=== PATIENT | male | born 1960 | race Caucasian/White ===

== ENCOUNTER → 2016-09-23 | Outpatient (CLI) | payer OTHER, MEDICAID | LOC: FIMAGING 13:53 | PROVIDERS: ATTEND Family Medicine | DX: M81.0 Age-related osteoporosis without current pathological fracture (principal); G35 Multiple sclerosis; E55.9 Vitamin D deficiency, unspecified; Z79.899 Other long term (current) drug therapy ==

== ENCOUNTER → 2017-04-28 | Outpatient (CLI) | payer OTHER, MEDICAID | LOC: FIMAGING 07:11 | PROVIDERS: ATTEND Physician Assistant Medical | DX: K82.9 Disease of gallbladder, unspecified (principal) ==

== ENCOUNTER 2017-07-18 07:31 | Inpatient (IN) | payer OTHER, MEDICAID ==
[2017-07-18] MEDS ORDERED: LIDOCAINE 2% JELLY 20 ML (UROJECT) UR ONE (07:51)
--- NOTE | 2017-07-18 08:12 | EDPHY ---
H & P Time Seen by Provider: 07/18/17 07:54 HPI/ROS: CHIEF COMPLAINT: Can't urinate HISTORY OF PRESENT ILLNESS: History of multiple sclerosis, had a urinary catheter since April, voiding trial since yesterday, presents with inability to void today. Catheter was placed and has very cloudy urine which is a change for him. Usually it is clear. Today not associated with nausea vomiting fever or any other systemic symptoms. REVIEW OF SYSTEMS: Eye: no change in vision ENT: no sore throat Cardiac: no chest pain or syncope Pulmonary: no cough or SOB Abdomen: no vomiting, diarrhea, abdominal pain Musculoskeletal: no back pain Skin: no rash Neuro: no headache, no weakness. Constitutional: no fever : HPI A comprehensive 10 point review of systems is otherwise negative aside from elements mentioned in the history of present illness. PAST MEDICAL HISTORY: Multiple sclerosis Social history: Nonsmoker General Appearance: Alert and conversant, cooperative. Eyes: No scleral icterus. ENT, Mouth: Normal mucous membranes. Respiratory: Normal respiratory effort, breath sounds equal, lungs are clear to auscultation. Cardiovascular: Regular rate and rhythm. Gastrointestinal: Abdomen is soft and non tender. Normal male . Neurological: Alert, has weakness in his legs which is typical for him, can move his toes but can't really move either leg very well. Skin: Warm and dry, no rashes. Musculoskeletal: No peripheral edema. Psychiatric: Not agitated. Emergency Department course/MDM: Significant change in character of urine, observation admission for IV antibiotics in a patient with new urinary tract infection and indwelling catheter. Ceftriaxone 1 g IV. Does not have SIRS criteria. Smoking Status: Never smoked Constitutional: Initial Vital Signs Temperature (C) 36.8 C 07/18/17 07:46 Heart Rate 98 07/18/17 07:46 Respiratory Rate 16 07/18/17 07:46 Blood Pressure 139/99 H 07/18/17 07:46 O2 Sat (%) 98 07/18/17 07:46 O2 Delivery Mode Room Air Allergies/Adverse Reactions: No Known Allergies Allergy (Unverified 07/18/17 07:45) Home Medications: Medication Instructions Recorded Herbals/Supplements -Info Only 1 ea PO DAILY 07/18/17 Mirabegron [Myrbetriq] 25 mg PO HS 07/18/17 Medical Decision Making Differential Diagnosis: Differential for urinary retention considered including but not limited to prostatic hypertrophy, UTI, neurologic problem, hematuria. Consult/Admit Bed Type: [place] [id number] - Data Points Laboratory Results: Laboratory Results 07/18/17 08:36 07/18/17 08:36 07/18/17 07/18/1718 08:36 08:36 08:09 WBC 6.91 10^3/uL 10^3/uL (3.80-9.50) RBC 5.59 10^6/uL 10^6/uL (4.40-6.38) Hgb 14.9 g/dL g/dL (13.7-17.5) Hct 45.5 % % (40.0-51.0) MCV 81.4 fL L fL (81.5-99.8) MCH 26.7 pg L pg (27.9-34.1) MCHC 32.7 g/dL g/dL (32.4-36.7) RDW 12.8 % % (11.5-15.2) Plt Count 222 10^3/uL 10^3/uL (150-400) MPV 10.5 fL fL (8.7-11.7) Neut % (Auto) 77.9 % H % (39.3-74.2) Lymph % (Auto) 13.3 % L % (15.0-45.0) [place] % (Auto) 7.4 % % (4.5-13.0) Eos % (Auto) 0.7 % % (0.6-7.6) Baso % (Auto) 0.3 % % (0.3-1.7) Nucleat RBC Rel Count 0.0 % % (0.0-0.2) Absolute Neuts (auto) 5.38 10^3/uL 10^3/uL (1.70-6.50) Absolute Lymphs (auto) 0.92 10^3/uL L 10^3/uL (1.00-3.00) Absolute Monos (auto) 0.51 10^3/uL 10^3/uL (0.30-0.80) Absolute Eos (auto) 0.05 10^3/uL 10^3/uL (0.03-0.40) Absolute Basos (auto) 0.02 10^3/uL 10^3/uL (0.02-0.10) Absolute Nucleated RBC 0.00 10^3/uL 10^3/uL (0-0.01) Immature Gran % 0.4 % % (0.0-1.1) Immature Gran # 0.03 10^3/uL 10^3/uL (0.00-0.10) Sodium 149 mEq/L H mEq/L (135-145) Potassium 4.6 mEq/L mEq/L (3.5-5.2) Chloride 111 mEq/L H mEq/L (97-110) Carbon Dioxide 24 mEq/l mEq/l (22-31) Anion Gap 14 mEq/L mEq/L (8-16) BUN 27 mg/dL H mg/dL (7-23) Creatinine 1.5 mg/dL H mg/dL (0.7-1.3) Estimated GFR 48 Glucose 94 mg/dL mg/dL (70-100) Calcium 9.4 mg/dL mg/dL (8.5-10.4) Urine Color YELLOW Urine Appearance MODERATELY TURBID Urine pH 6.0 (5.0-7.5) Ur Specific [place] 1.011 (1.002-1.030) Urine Protein 1+ H (NEGATIVE) Urine Ketones NEGATIVE (NEGATIVE) Urine Blood 2+ H (NEGATIVE) Urine Nitrate NEGATIVE (NEGATIVE) Urine Bilirubin NEGATIVE (NEGATIVE) Urine Urobilinogen NEGATIVE EU EU (0.2-1.0) Ur Leukocyte Esterase 3+ H (NEGATIVE) Urine RBC 50-182 /hpf H /hpf (0-3) Urine WBC 50-182 /hpf H /hpf (0-3) Ur Epithelial Cells NONE SEEN /lpf /lpf (NONE-1+) Urine Bacteria 2+ /hpf H /hpf (NONE SEEN) Urine Glucose NEGATIVE (NEGATIVE) Medications Given: Enoxaparin Sodium (Lovenox) 40 mg SC DAILY ERNESTO Stop: 01/14/18 08:59 Last Admin: 07/18/17 10:43 Dose: 40 mg Discontinued Medications Ceftriaxone Sodium/Dextrose (Rocephin 1 Gm (Premix)) 50 mls @ 100 mls/hr IV EDNOW ONE PRN Reason: Protocol Stop: 07/18/17 09:09 Last Admin: 07/18/17 09:06 Dose: 50 mls Sodium Chloride (Ns) 1,000 mls @ 0 mls/hr IV EDNOW ONE; Wide Open PRN Reason: Protocol Stop: 07/18/17 08:41 Last Admin: 07/18/17 09:05 Dose: 1,000 mls Sodium Chloride (Ns) 1,000 mls @ 3,000 mls/hr IV ONCE ONE Stop: 07/18/17 09:11 Last Admin: 07/18/17 10:11 Dose: 1,000 mls Lidocaine (Uroject Lidocaine 2% Jelly) 20 ml UR ONCE ONE Stop: 07/18/17 07:52 Last Admin: 07/18/17 08:01 Dose: 20 ml Departure - Departure Disposition: [facility] Inpatient Acute Clinical Impression: Acute retention of urine Urinary tract infection Qualifiers: Urinary tract infection type: catheter-associated UTI Indwelling urinary catheter type: indwelling urethral catheter Encounter type: initial encounter Qualified Code(s): T83.511A - Infection and inflammatory reaction due to indwelling urethral catheter, initial encounter; N39.0 - Urinary tract infection , site not specified; N39.0 - Urinary tract infection, site not specified Condition: Good
[2017-07-18] MEDS ORDERED: NS 1,000 ML IV ONE ×2 (08:40→08:52)
[2017-07-18 08:44] LABS: PLATELET COUNT 222 10^3/uL (150-400)
[2017-07-18] MEDS ORDERED: ACETAMINOPHEN 325 MG TAB PO PRN (08:52)
[2017-07-18] MEDS ORDERED: ONDANSETRON DISINTEGRATING 4 MG TAB PO PRN (08:52)
[2017-07-18] MEDS ORDERED: ONDANSETRON 4 MG/2 ML VIAL IVP PRN (08:52)
[2017-07-18] MEDS: ENOXAPARIN 40 MG/0.4 ML SYR SC SCH (10:43)
--- NOTE | 2017-07-18 12:51 | GHP ---
[f rep st] HISTORY AND PHYSICAL DATE OF ADMISSION: 07/18/2017 CHIEF COMPLAINT: Not urinating. HISTORY OF PRESENT ILLNESS: A 57-year-old male with a history of MS and BPH, who has been seen in [facility] outpatient setting by Urology for obstructive uropathy. The patient had a Vera catheter placed fo r approximately 1 month, then had it discontinued, and has been seen in Urology with recommendations for intermittent straight catheterizing. Patient returned home, was out of straight catheterizing bach pplies, was having difficulty passing urine. Therefore, presented to the emergency department for ev aluation. In the ED, he endorses pressure of the lower abdomen. Denies any fevers or chills. Denie s dysuria, denies hematuria. Denies any chest pain, shortness of breath, nausea, vomiting, changes i n his bowel habits, lower extremity edema, or new rashes. PAST MEDICAL HISTORY: 1. MS diagnosed in 1992, wheelchair-bound. 2. BPH. SOCIAL HISTORY: Negative for tobacco, alcohol. Patient does smoke medical marijuana. FAMILY HISTORY: Negative for MS. REVIEW OF SYSTEMS: A 10-point review of systems was negative, with the exception of that reported in the HPI. PHYSICAL EXAMINATION: VITAL SIGNS: Blood pressure 131/78, heart rate 80, respiratory rate 14, satur ating 99% on room air, temperature 36.8. GENERAL: This is a middle-aged male in no acute distress, sitting up in bed. HEENT: Notable for dry mucous membranes. Eye exam is negative for any icterus. CARDIAC: Patient is regular rate and rhythm. PULMONARY: Clear to auscultation bilaterally. GASTR OINTESTINAL: Positive bowel sounds. Abdomen is soft and nontender. MUSCULOSKELETAL: Negative for any lower extremity edema. SKIN: Negative for any rashes. NEUROLOGIC: Patient is alert and orient ed x3. PSYCHIATRIC: He is pleasant and cooperative on interview and examination. DATA: White count 6.9, hematocrit 45.5, platelet count of 222. Sodium of 149, creatinine 1.5. Urin alysis: 50-182 white blood cells. Ultrasound of the abdomen, which I reviewed, shows normal sonographic appearance of the kidneys in [facility] 2018. ASSESSMENT AND PLAN: This is a 57-year-old male presenting with urinary retention. 1. Acute urinary tract infection, suspect secondary to urinary retention, related to his multiple sc lerosis and prostatic hypertrophy. The patient had a Vera catheter placed in the emergency departme nt. Will initiate IV ceftriaxone, send urine for culture, and continue ceftriaxone until cultures ar e available with speciation and sensitivities. 2. Chronic urinary retention. Will discontinue the Vera catheter and follow the outpatient urologi c plan for straight catheterizing. Will bladder scan the patient and straight catheterize q.6 hours for retention greater than 300 cc. Will additionally provide education and opportunity for the patie nt to practice his straight catheterizing skill, which he has not used consistently at home. 3. Multiple sclerosis. Will continue his outpatient medications. 4. Prophylaxis with Lovenox. 5. Diet regular. 6. Disposition: I suspect greater than 2 midnights, as the patient has medical comorbidities, urina ry retention, and infection requiring IV antibiotics. I have discussed the case with the emergency room physician. Patient will be triaged to the Medical- Surgical floor for care. /[id number]/MODL
--- NOTE | 2017-07-18 13:56 | PDMN ---
Medical Necessity Medical necessity: C/M review: est. > 2 MN LOS for eval and TX of acute urinary tract infection, suspect secondary to urinary retention, related to multiple sclerosis and prostatic hypertrophy, requiring IV fluids in ED, Evra catheter placement in ED, discontinue Vera catheter, Wound Care consult, Dietary consult, Case Management consult, ongoing IV Ceftriaxone, follow outpatient urologic plan for straight catheterizing - bladder scan patient and straight catheterize Q 6 hrs. for retention > 300 ml, provide patient education on self catheterization, acute inpt PT/OT, comorbid history of multiple sclerosis diagnosed in 1992, patient is wheelchair bound, benign prostatic hypertrophy, chronic urinary retention, history of Vera catheter placement for one month, then had it discontinued, and was seen in Urology with recommendations fro intermittent straight catheterizing, patient returned home, was out of straight catheterizing supplies, was having difficulty with passing urine then presented to the ED just prior to this admission per H/P.
[2017-07-18] MEDS ORDERED: Mirabegron [Myrbetriq] 25 MG PO SCH (21:00)
[2017-07-19 05:20] LABS: PLATELET COUNT 214 10^3/uL (150-400)
[2017-07-19 07:39] VITALS: BP 122/64
[2017-07-19] MEDS: ENOXAPARIN 40 MG/0.4 ML SYR SC SCH (08:39)
[2017-07-19] MEDS ORDERED: Herbals/Supplements -Info Only PO SCH (09:00)
--- NOTE | 2017-07-19 09:43 | WOCRNPDOC ---
WOCRN Advanced Assessment Note - Skin Integrity Problem, Advanced Assess Left Buttock Pressure Injury Dressing Type: Mepilex Border Dressing Description: Intact Exudate Amount: None Exudate Characteristic(s): None Integumentary Issue Intervention: Dressing Applied, Dressing Initialed & Dated Maxine Wound Tissue: Intact Maxine Wound Swelling: None Wound Bed Color: Red Site Measurement - Head-to-Toe Length X Width X Depth (cm): [id number] Pressure Injury Stage: Stage 1 Pressure Injury Present on Admit: Yes (documented by nursing; hospitalist notified) Skin Integrity Problem Comment: Dime-sized area of non-blanching erythema noted on patient's L buttock, skin intact. While not over a bony prominence, concerning because patient reports sitting up in WC for "about 5 hours" each day. Nursing initiated Mepilex sacrum and off-loading cusion, and these interventions are appropriate to continue. Order put in for repositioning in chair q1 hour as well. Discussed with patient the importance of frequent repositioning, and he verbalized understanding. Wound care will follow up on Monday 07/24 if he remains inpatient. Coccyx Dressing Type: Mepilex Border Dressing Description: Intact Exudate Amount: None Exudate Characteristic(s): None Integumentary Issue Intervention: Dressing Applied, Dressing Initialed & Dated Maxine Wound Tissue: Blanching, Intact Maxine Wound Swelling: None Skin Integrity Problem Comment: Small slit noted over patient's coccyx, w/ no swelling or erythema. Skin blanches throughout. Appearance consistent w/ ITD, however patient is not incontinent of urine or stool and has no other signs of skin breakdown. Could simply be anatomical defect. Nursing is already monitoring an area of redness on his L buttock, and Mepilex sacral dressing should cover this area as well.
[2017-07-19] MEDS ORDERED: SENNOSIDES/DOCUSATE SODIUM TAB PO SCH (10:30)
--- NOTE | 2017-07-19 14:27 | ASDISCHSUM ---
Discharge Information Plan Status:Home with No Needs Medically Cleared to Leave:07/19/2017 Discharge Date:07/19/2017 02:23 PM CM D/C Disposition:Home, Routine, Self-Care ADT D/C Disposition:Home, Routine, Self-Care Projected Discharge Date:07/19/2017 02:23 PM Transportation at D/C:Friend Discharge Delay Reason: Follow-Up Date:07/19/2017 02:23 PM Discharge Slot: Final Diagnosis: Placement Information Patient Contact Information Contact Name:BRENNEN Relationship:Friend Address: Work Phone: City: [facility] Phone: State/[employer] Code: Email: Financial Information Financial Class:Medicare Primary Plan Desc:MEDICARE INPATIENT Primary Plan Number:[id number] Secondary Plan Desc:MEDICAID [place] Secondary Plan Number:[id number] Assessment Information Case Management Discharge Plan Note Case Management Discharge Discharge Order Complete? Answers: Yes Patient to Obtain Answers: Independently Medications Transportation Arranged Answers: Family/Friends Discharge Comments Notes: Pt admitted with UTI and urinary retention. Hx of MS and BPH. He was seen by wound care for a L buttock pressure wound. He is wheelchair bound. Pt is being discharged home today with no CM needs. He was provided with some straight cath supplies and will f/u with urology Thursday. Date Signed: 07/19/2017 02:25 PM Electronically Signed By:JOSIANE Sparks Intervention Information
--- NOTE | 2017-07-19 14:50 | GDS ---
[f rep st] DISCHARGE SUMMARY DISCHARGE DIAGNOSES: Include: 1. Acute urinary tract infection secondary to gram-negative rogers. 2. Urinary retention, chronic. 3. Multiple sclerosis, wheelchair bound. 4. Benign prostatic hypertrophy. HISTORY OF PRESENT ILLNESS: A 57-year-old male, with history of multiple sclerosis and BPH, who pres ents with urinary retention and UTI. For details of the patient's initial presentation, please see t he history and physical dated 07/18/2017. CONSULTATIVE SERVICES: None. PROCEDURES: None. HOSPITAL COURSE BY ISSUE: 1. Acute urinary tract infection. Patient presented with complaints of abdominal discomfort, urinar y retention. Urinalysis was consistent with infection. Patient was initiated on empiric IV ceftriax one. Urine culture did isolate a gram-negative lactose-fermenting rogers. Patient is feeling markedly better the morning after presentation, in fact, has recovered more quickly than we anticipated. I be lieve it is safe to transition him to oral levofloxacin to complete a full 7-day course. He will see Urology in the outpatient setting. 2. Chronic urinary retention. Patient has a history of obstructive uropathy with a creatinine of 3 checked earlier this year. His creatinine is 1.5 to 1.6 during this hospital stay. We did do educat ion on self-cathing and are providing the patient with some materials to self-cath until he is seen a gain in the outpatient Neurology Clinic on 07/21/2017. 3. Multiple sclerosis. Patient was seen by PT, OT, as well as Wound Care, during this hospital stay , provided extensive education on shifting weight, skin protection, etc. 4. Left buttock pressure injury, present on admission. Patient was seen by Wound, with extensive ed ucation on how to avoid ongoing skin breakdown. MEDICATIONS AT THE TIME OF DISPOSITION: Please reference the med rec printed 07/19/2017. FOLLOWUP APPOINTMENTS: Include with outpatient Urology on 07/21/2017, as well as with his primary ca re provider in the next 2-3 weeks for general post disposition followup. PENDING STUDIES: At the time of this dictation include urine cultures which have isolated a gram-neg ative lactose-fermenting rogers. Will follow these in the next 24-48 hours to verify that the isolated organism is sensitive to levofloxacin. I spent greater than 30 minutes in the planning and coordinat ion of this discharge. /[id number]/MODL
== END 2017-07-19 14:23 | disposition home or self-care (01) | DRG 690 ==
LOC: F3E 09:42
PROVIDERS: ADMIT Internal Medicine; ATTEND Internal Medicine
DX: N39.0 Urinary tract infection, site not specified (principal); R33.9 Retention of urine, unspecified; G35 Multiple sclerosis; N40.1 Benign prostatic hyperplasia with lower urinary tract symptoms; L89.321 Pressure ulcer of left buttock, stage 1; Z99.3 Dependence on wheelchair
CPT/HCPCS: 97161-GP; 97165-GO; G8978-GP-CI; G8979-GP-CI; G8980-GP-CI; G8987-GO-CJ; G8988-GO-CJ; G8989-GO-CJ; J0696; J1650

== ENCOUNTER 2017-08-27 07:38 | Day surgery (SDC) | payer OTHER, MEDICAID ==
--- NOTE | 2017-08-19 08:33 | CPEKG ---
Heart Rate: 60 RR Interval: 1000 P-R Interval: 120 QRSD Interval: 96 QT Interval: 404 QTC Interval: 404 P [place]: 76 QRS [place]: 80 T Wave [place]: 64 EKG Severity - ABNORMAL ECG - EKG Impression: SINUS RHYTHM EKG Impression: LATERAL INFARCT, OLD Electronically Signed By: Indra Ramos 20-Aug-2017 08:30:15
--- NOTE | 2017-08-26 16:45 | GHP ---
[f rep st] PREOP HISTORY AND PHYSICAL ADMISSION DIAGNOSIS: Neurogenic bladder. Dr. Urena has referred this patient because of urinary symptoms. He has nocturia hourly, urine ,leaka ge symptoms been ongoing for the last year and he also complains of urgency. He has had a catheter i n the past and he has attempted to do intermittent self catheterization without success. He denies h istory of urinary tract infections. He does have multiple sclerosis. He has tried and failed VESIca re in the past. He has also been on Myrbetriq which he stopped recently. He had no obvious improvem ent with Rapaflo. His past medical history is noted for the multiple sclerosis. His AUA score revea led that he had a quality of life of 6, which is terrible and a total score of 33. He had a PSA of 1 in September of 2016. Creatinine has been slowly elevating over the past because of unknown cause. PAST MEDICAL HISTORY: He has had urinary retention and multiple sclerosis. PAST SURGERIES: Ankle surgery. MEDICATIONS: No current medications. ALLERGIES: None. FAMILY HISTORY: He says is positive for sickle cell trait or disease. SOCIAL HISTORY: Nondrinker, unemployed. Uses medical marijuana. IMMUNIZATIONS: Up to date. REVIEW OF SYSTEMS: Negative cardiac, respiratory, GI and endocrine. He does have the multiple scler osis. PHYSICAL EXAM: GENERAL: He is wheelchair bound. HEENT: He has no scleral icterus. LUNGS: Unlabo red breathing. HEART: Regular rate and rhythm. ABDOMEN: Soft. EXTREMITIES: Lower extremities ar e normal. At the present time, he is admitted for cystoscopy for evaluation of his lower urinary tract under an esthesia because he does not feel he can tolerate this awake. He is aware that the anesthesia may wang ve some effect or flare with respect to his multiple sclerosis. /[id number]/MODL
--- NOTE | 2017-08-27 07:00 | PDHPUP ---
History & Physical Update H&P update statement: This history and physical update is based on an assessment of the patient which was completed after admission or registration (within 24 hours), but prior to the surgery/procedure. H&P update: H&P reviewed & patient examined, no change in patient's condition since H&P completed
[2017-08-27] MEDS ORDERED: LR 1,000 ML IV ONE (07:45)
[2017-08-27] MEDS ORDERED: ceFAZolin 2 GM/SWFI 2 GM/20 ML SYR IVP ONE (08:30)
[2017-08-27] MEDS ORDERED: LIDOCAINE 2% JELLY 20 ML (UROJECT) ONE (08:33)
[2017-08-27] MEDS ORDERED: MIDAZOLAM 2 MG/2 ML VIAL IVP ONE (08:40)
--- NOTE | 2017-08-27 08:42 | PDANEPAE ---
ANE History of Present Illness cysto ANE Past Medical History - Cardiovascular History Hx Hypertension: No Hx Arrhythmias: No Hx Chest Pain: No Hx Coronary Artery / Peripheral Vascular Disease: No Hx CHF / Valvular Disease: No Hx Palpitations: No - Pulmonary History Hx COPD: No Hx Asthma/Reactive Airway Disease: No Hx Recent Upper Respiratory Infection: No Hx Oxygen in Use at Home: No Hx Sleep Apnea: No Sleep Apnea Screening Result - Last Documented: Negative - Neurologic History Hx Cerebrovascular Accident: No Hx Seizures: Yes Hx Dementia: No Neurologic History Comment: MS - wheelchair. one seizure 'S OFFICE 1992. NOTHING SINCE - Endocrine History Hx Diabetes: No - Renal History Hx Renal Disorders: No - Liver History Hx Hepatic Disorders: No - Neurological & Psychiatric Hx Hx Neurological and Psychiatric Disorders: Yes Neurological / Psychiatric History Comment: MS - Cancer History Hx Cancer: No - Congenital Disorder History Hx Congenital Disorders: No - GI History Hx Gastrointestinal Disorders: No - Other Health History Other Health History: NONE - Chronic Pain History Chronic Pain: No - Surgical History Prior Surgeries: ankle surgery ANE Review of Systems Review of Systems: - Exercise capacity METS (RN): 1 METS ANE Patient History - Allergies Allergies/Adverse Reactions: No Known Allergies Allergy (Verified 08/17/17 12:10) - Home Medications Home Medications: Herbals/Supplements -Info Only 07/18/17 [Last Taken Unknown] - NPO status NPO Since - Liquids (Date): 08/27/17 NPO Since - Liquids (Time): 05:30 NPO Since - Solids (Date): 08/26/17 NPO Since - Solids (Time): 18:00 - Anes Hx Anes Hx: no prior problems - Smoking Hx Smoking Status: Former smoker - Family Anes Hx Family Hx Anesthesia Complications: none ANE Labs/Vital Signs - Labs Result Diagrams: 08/18/17 10:48 - Vital Signs Blood Pressure: 143/87 Heart Rate: 81 Respiratory Rate: 14 O2 Sat (%): 98 Height: 172.72 cm Weight: 58.967 kg ANE Physical Exam - Airway Mallampati Score: Class 2 Mouth exam: normal dental/mouth exam - Pulmonary Pulmonary: no respiratory distress - Cardiovascular Cardiovascular: regular rate and rhythym - ASA Status ASA Status: II ANE Anesthesia Plan Anesthesia Plan: MAC
--- NOTE | 2017-08-27 09:16 | POSTOPPROG ---
Post Op Note Date of Operation: 08/27/17 Surgeon: Mike Cottrell Anesthesiologist: Kilo Anesthesia: IV Sedation Pre-op Diagnosis: NGB with retention Procedure: cysto Findings: NGB + BPH Inf/Abcess present in the surg proc area at time of surgery?: No EBL: Minimal Specimen(s): none====dictated
[2017-08-27] MEDS ORDERED: ALBUTEROL 3 ML DEYVIAL IH PRN (09:25)
[2017-08-27] MEDS ORDERED: NALOXONE HCL 0.4 MG/ML INJ IVP PRN (09:25)
[2017-08-27] MEDS ORDERED: PHENYLEPHRINE HCL 100 MCG/ML SYR IVP PRN (09:25)
[2017-08-27] MEDS ORDERED: fentaNYL 100 MCG/2 ML INJ IVP PRN (09:25)
[2017-08-27] MEDS ORDERED: ONDANSETRON 4 MG/2 ML VIAL IVP PRN (09:25)
--- NOTE | 2017-08-27 09:25 | POSTANESTH ---
Post Anesthetic Evaluation Cardiovascular Status: Normal, Stable Respiratory Status: Normal, Stable Level of Consciousness/Mental Status: Can Participate in Eval Pain Control: Adequate, Prn Tx Ordered Nausea/Vomiting Control: Adequate, Prn Tx Ordered Complications Possibly Related to Anesthesia: None Noted
--- NOTE | 2017-08-27 09:27 | GOP ---
[f rep st] OPERATIVE REPORT DATE OF OPERATION: 08/27/2017 SURGEON: Mike Cottrell MD ANESTHESIA: Under propofol anesthesia. ANESTHESIOLOGIST: Martell Boateng MD. PREOPERATIVE DIAGNOSIS: Neurogenic bladder with retention. POSTOPERATIVE DIAGNOSIS: Neurogenic bladder with retention. PROCEDURE PERFORMED: Cystoscopy. FINDINGS: DESCRIPTION OF PROCEDURE: After being prepped and draped in normal sterile fashion, cystoscopy revea led normal urethra. Bladder had inflammatory change related to the catheter and trabeculation. Pros hillman had some mild obstruction with lateral lobar hypertrophy and elevated bladder neck and no tumor, stones, foreign bodies were identified in the bladder. At that point, Uro-jet placed in the urethra . A 16 Vera catheter placed. Will discuss with him postop further assessment. /[id number]/MODL
[2017-08-27 10:02] VITALS: BP 132/76
== END 2017-08-27 10:30 | disposition home or self-care (01) ==
LOC: FSGY 07:38
PROVIDERS: ATTEND Specialist
PROC: 0TJB8ZZ Inspection of Bladder, Via Natural or Artificial Opening Endoscopic (ICD-10-PCS; principal; 2017-08-27 10:30)
DX: N31.9 Neuromuscular dysfunction of bladder, unspecified (principal); R33.9 Retention of urine, unspecified; G35 Multiple sclerosis
CPT/HCPCS: J0690; J2250

== ENCOUNTER 2017-08-27 18:03 | Emergency (ER) | payer OTHER, MEDICAID ==
--- NOTE | 2017-08-27 18:17 | EDPHY ---
H & P Time Seen by Provider: 08/27/17 18:16 HPI/ROS: CHIEF COMPLAINT: Urinary retention HISTORY OF PRESENT ILLNESS: 57-year-old man with multiple sclerosis arrives with urinary tension feeling like he needs to go but can't. He had cystoscopy by Dr. Cottrell today around 11 30 or noon for neurogenic bladder. Dr. Cottrell at that time recommended putting a Vera catheter in him until his follow-up appointment on September 11 but the patient declined and wanted to try without. He feels like he needs to urinate but cannot and feels like his bladder is full. No fever or chills and no back pain. REVIEW OF SYSTEMS: Eye: no change in vision ENT: no sore throat Cardiac: no chest pain or syncope Pulmonary: no cough or SOB Abdomen: No vomiting, suprapubic fullness. Musculoskeletal: no back pain Skin: no rash Neuro: Chronic leg weakness but unchanged Constitutional: no fever : no urinary symptoms A comprehensive 10 point review of systems is otherwise negative aside from elements mentioned in the history of present illness. PAST MEDICAL HISTORY: Multiple sclerosis and neurogenic bladder Social history: Not currently smoking General Appearance: Alert and conversant, cooperative. Eyes: No scleral icterus. ENT, Mouth: Normal mucous membranes. Respiratory: Normal respiratory effort, breath sounds equal, lungs are clear to auscultation. Cardiovascular: Regular rate and rhythm. Gastrointestinal: Abdomen is soft and non tender. Normal male . Neurological: Alert, follows commands, fluent speech, leg weakness bilateral which is baseline. Skin: Warm and dry, no rashes. Musculoskeletal: No peripheral edema. Psychiatric: Not agitated. Emergency Department course/MDM: Patient has distended full bladder on ultrasound, bladder scan by tech Vera placed with good drainage of the bladder with clear urine and resolution of symptoms. Likely due to procedure earlier today. Unlikely due to infection only 6 hr past procedure. Smoking Status: Former smoker Constitutional: Initial Vital Signs Temperature (C) 37.1 C 08/27/17 18:10 Heart Rate 104 H 08/27/17 18:10 Respiratory Rate 18 08/27/17 18:10 Blood Pressure 162/98 H 08/27/17 18:10 O2 Sat (%) 97 08/27/17 18:10 O2 Delivery Mode Room Air Allergies/Adverse Reactions: No Known Allergies Allergy (Verified 08/17/17 12:10) Home Medications: Medication Instructions Recorded Herbals/Supplements -Info Only 07/18/17 Departure - Departure Disposition: Home, Routine, Self-Care Clinical Impression: Urinary retention Condition: Good Instructions: Vera Catheter Placement and Care (ED) Referrals: Mike Cottrell MD [Medical Doctor] - As per Instructions (Call Dr. Cottrell's office to make sure they still want to see you in the office as scheduled on the 11 of September and not sooner.)
[2017-08-27 19:49] VITALS: BP 130/99
== END 2017-08-27 20:00 | disposition home or self-care (01) ==
LOC: EDUNIT#
PROC: 0T9B70Z Drainage of Bladder with Drainage Device, Via Natural or Artificial Opening (ICD-10-PCS; principal; 2017-08-27)
DX: R33.9 Retention of urine, unspecified (principal); Z87.891 Personal history of nicotine dependence

== ENCOUNTER → 2018-08-07 | Outpatient (CLI) | payer OTHER, MEDICAID | LOC: FIMAGING 11:57 | PROVIDERS: ATTEND Family Medicine | DX: M79.89 Other specified soft tissue disorders (principal); M91.0 Juvenile osteochondrosis of pelvis ==

== ENCOUNTER 2018-08-12 07:40 | Emergency (ER) | payer OTHER, MEDICAID ==
--- NOTE | 2018-08-12 08:07 | EDPHY ---
H & P Time Seen by Provider: 08/12/18 07:44 HPI/ROS: Chief complaint. Patient has run out of bladder catheters HPI. Patient is a 58-year-old male with history of MS. He self caths. He normally self caths about every 6 hr. However if he drinks more fluids he sometimes has to self cath more often. At that point he will feel some pressure. He does not really feel pressure but feet has felt the need to increased frequency of use. He has had no fever. No other complaints. With the increased frequency of use he has run out of his urinary or urinary catheters for self catheterization. He has received an e-mail that tells him that shipment will arrive tomorrow. He normally uses a 16 [place] catheter. He has no complaints other than the shipment of his catheters has not arrived and he does not have sufficient number until tomorrow ROS 10 systems were reviewed and negative with the exception of the elements mentioned in the history of present illness Past Medical/Surgical History: MS, sickle cell, BPH Social History: Single, nonsmoker, no alcohol Smoking Status: Former smoker Physical Exam: General Appearance: Alert well-developed male mild distress. Vital signs are stable. Afebrile Eyes: Pupils equal and round no pallor or injection. ENT, Mouth: Mucous membranes are moist. Respiratory: There are no retractions, lungs are clear to auscultation. Cardiovascular: Regular rate and rhythm. Gastrointestinal: Abdomen is soft and nontender, no masses, bowel sounds normal. Neurological: Awake and alert, sensory and motor exams grossly normal. Skin: Warm and dry, no rashes. Musculoskeletal: Neck is supple nontender. Extremities symmetrical, full range of motion. Psychiatric: Patient is oriented X 3, there is no agitation. Constitutional: Initial Vital Signs Temperature (C) 36.6 C 08/12/18 07:47 Heart Rate 73 08/12/18 07:47 Respiratory Rate 16 08/12/18 07:47 Blood Pressure 125/89 H 08/12/18 07:47 O2 Sat (%) 97 08/12/18 07:47 O2 Delivery Mode Room Air Allergies/Adverse Reactions: No Known Allergies Allergy (Verified 08/17/17 12:10) Home Medications: Medication Instructions Recorded Herbals/Supplements -Info Only 07/18/17 Medical Decision Making Procedures: Catheter is supplied for the patient to self cath. Urine sent for analysis ED Course/Re-evaluation: Re-evaluation 9:25 a.m.. Patient is stable. Patient and I discussed laboratory evaluation. We discussed treatment plan including criteria for return importance of follow-up further evaluation. He expresses understanding and agreement Differential Diagnosis: I considered urinary tract infection, acute urinary retention - Data Points Laboratory Results: 08/12/18 08:23 Urine Color YELLOW Urine Appearance CLEAR Urine pH 6.0 (5.0-7.5) Ur Specific [place] 1.015 (1.002-1.030) Urine Protein NEGATIVE (NEGATIVE) Urine Ketones NEGATIVE (NEGATIVE) Urine Blood NEGATIVE (NEGATIVE) Urine Nitrate NEGATIVE (NEGATIVE) Urine Bilirubin NEGATIVE (NEGATIVE) Urine Urobilinogen NEGATIVE EU EU (0.2-1.0) Ur Leukocyte Esterase NEGATIVE (NEGATIVE) Urine RBC NONE SEEN /hpf /hpf (0-3) Urine WBC 1-3 /hpf /hpf (0-3) Ur Epithelial Cells NONE SEEN /lpf /lpf (NONE-1+) Urine Mucus TRACE /lpf /lpf (NONE-1+) Urine Glucose NEGATIVE (NEGATIVE) Departure - Departure Disposition: Home, Routine, Self-Care Clinical Impression: Acute retention of urine Condition: Good Instructions: [facility] Patient Education, Infection Prevention Additional Instructions: Return for worsening symptoms Referrals: Patient,NotPresent [Unknown] - As per Instructions Mike Cottrell MD [Medical Doctor] - As per Instructions
[2018-08-12 09:22] VITALS: BP 127/92
== END 2018-08-12 09:33 | disposition home or self-care (01) ==
LOC: EDUNIT#
DX: R33.9 Retention of urine, unspecified (principal); G35 Multiple sclerosis; D57.1 Sickle-cell disease without crisis; N40.1 Benign prostatic hyperplasia with lower urinary tract symptoms